=== PATIENT | female | born 1950 | race Caucasian/White ===

== ENCOUNTER 2024-11-15 16:44 | Emergency (ER) | payer MEDICARE, OTHER ==
[2024-11-15 20:17] LABS: ALT (SGPT) 19 U/L (Less than 34); AST (SGOT) 23 U/L (11-34); Albumin 3.9 g/dL (3.1-4.5); Alkaline Phosphatase 42 U/L (40-110); Anion Gap 13 mmol/L (10-20); BUN (Urea Nitrogen) 26 mg/dL (9.8-20.1); Bilirubin, Total 0.3 mg/dL (0.3-1.2); Calc. Creatinine Clearance 0 mL/min (70-130); Calcium 9.4 mg/dL (7.8-10.44); Carbon Dioxide 27 mmol/L (23-31); Chloride 107 mmol/L (98-107); Globulin 2.6 g/dL (2.4-3.5); Glucose 86 mg/dL (83-110); Potassium 3.9 mmol/L (3.5-5.1); Sodium 143 mmol/L (136-145)
[2024-11-15 20:28] LABS: #Basophils 0.05 10x3/uL (0.0-0.2); #Eosinophils 0.06 10x3/uL (0.0-0.7); #Monocytes 0.62 10x3/uL (0.11-0.59); #Neutrophils 2.94 10x3/uL (1.40-6.50); %Basophils 0.9 % (0.0-1.0); %Eosinophils 1.0 % (0.0-10.0); %Lymphocytes 37.1 % (21.0-51.0); %Monocytes 10.6 % (0.0-10.0); %Neutrophils 50.2 % (42.0-75.0); Hematocrit 38.6 % (36.0-47.0); Hemoglobin 12.7 g/dL (12.0-16.0); Mean Corpuscular Hemoglobin 29.7 pg (27.0-31.0); Mean Corpuscular Volume 90.2 fL (78.0-98.0); Platelet Count 105 10x3/uL (130-400); Red Blood Cell (RBC) Count 4.28 mill/uL (4.20-5.40); White Blood Cell (WBC) Count 5.85 10x3/uL (4.8-10.8)
[2024-11-15 20:32] LABS: Actual Bicarbonate (HCO3v) 29.6 mEq/L (22-28); Base Excess 3.5 mEq/L (-2.0 to +3.0); Calcium, Ionized (venous) 1.17 mmol/L (1.16-1.32); Chloride (VBG) 106 mmol/L (98-106); Hematocrit-VBG 35 % (36.0-47.0); Hemoglobin (Hb) 12.0 g/dL (11.7-16.1); Potassium (VBG) 3.92 mmol/L (3.70-5.30); Sodium 143 mmol/L (133-146)
[2024-11-15 21:00] LABS: Platelet Adequacy Comment Platelets Decreased; RBC Morphology Within Normal Limits
[2024-11-16 02:04] LABS: Bacteria/HPF None Seen HPF (None Seen); CAUTI Indications for Culture Alt mental st,lethar; Glucose, Urine (Dipstick) Normal (Negative); Leukocyte Negative Leu/uL (Negative); Protein, Urine (Dipstick) Negative (Neg-Trace); RBC/HPF 0-3 HPF (0-3); Specific Gravity, Urine 1.024 (1.002-1.036); WBC/HPF 0-3 HPF (0-3)
[2024-11-16 02:09] LABS: Urine Culture Reflex No No
== END 2024-11-16 04:45 ==
LOC: ERS 16:44
DX: L89.152 Pressure ulcer of sacral region, stage 2 (principal); R35.0 Frequency of micturition
CPT/HCPCS: 51701; 71045; 80053; 81001; 82805; 85025; 87040; 87086; 94760